=== PATIENT | male | born 1950 | race Two or more races ===

== ENCOUNTER 2024-07-12 18:25 | Emergency (ER) | payer OTHER ==
[~2024-07-12] VITALS: Ht 170.2 cm; Wt 86.2 kg
[2024-07-12] MEDS ORDERED: IBUP-1490 PO (19:23)
[2024-07-12] MEDS ORDERED: ACET-2605 PO (19:23)
[2024-07-12] MEDS: ACETAMINOPHEN ES 500 MG TABLET PO ONE (19:30)
[2024-07-12] MEDS: IBUPROFEN 400 MG TABLET PO ONE (19:30)
[2024-07-12] MEDS ORDERED: ACETAMINOPHEN ES 500 MG TABLET ONE (19:34)
[2024-07-12] MEDS ORDERED: IBUPROFEN 400 MG TABLET ONE (19:35)
[2024-07-12 19:37] VITALS: BP 153/84; TEMP 98; O2SAT 96
== END 2024-07-12 19:37 | disposition home or self-care (01) ==
LOC: ER 18:28
DX: M54.2 Cervicalgia (principal); M54.50 Low back pain, unspecified; V89.2XXA Person injured in unspecified motor-vehicle accident, traffic, initial encounter; Y93.89 Activity, other specified; Y92.488 Other paved roadways as the place of occurrence of the external cause; Y99.8 Other external cause status